=== PATIENT | female | born 1980 | race African-American/Black ===

== ENCOUNTER 2023-06-15 21:33 | Emergency (ER) | payer MEDICARE, MEDICAID ==
[~2023-06-15] VITALS: Ht 165.1 cm; Wt 68.0 kg
[2023-06-15] MEDS ORDERED: FENTANYL CITRATE 100 MCG/2 ML AMPUL IM ONE (22:00)
[2023-06-15] MEDS ORDERED: FENTANYL CITRATE 100 MCG/2 ML AMPUL ONE (22:02)
[2023-06-16 00:21] LABS: BASOPHILS # (AUTO) 0.1 K/UL (0.0-0.2); BASOPHILS % (AUTO) 0.6 % (0.0-2.0); EOSINOPHILS % (AUTO) 0.1 % (0.0-7.0); HEMATOCRIT 37.8 % (31.2-41.9); HEMOGLOBIN 12.3 g/dL (10.9-14.3); LYMPHOCYTES # (AUTO) 2.2 K/uL (0.8-4.8); LYMPHOCYTES % (AUTO) 15.2 % (20.5-51.5); MEAN CORPUSCULAR HEMOGLOBIN 29.8 uug (24.7-32.8); MEAN CORPUSCULAR HGB CONC 33 g/dL (32.3-35.6); MEAN CORPUSCULAR VOLUME 91.9 fL (75.5-95.3); MONOCYTES # (AUTO) 1.7 K/uL (0.1-1.30); MONOCYTES % (AUTO) 11.7 % (0.0-11.0); NEUTROPHILS # (AUTO) 10.4 K/uL (1.8-8.9); NEUTROPHILS % (AUTO) 72.4 % (38.5-71.5); PLATELET COUNT (AUTO) 386 K/uL (179-408); RED BLOOD CELL COUNT(AUTO) 4.11 MIL/uL (3.63-4.92); RED CELL DISTRIBUTION WIDTH 13.5 % (12.3-17.7); WHITE BLOOD COUNT (AUTO) 14.3 K/uL (3.8-11.8)
[2023-06-16 00:25] LABS: DIFFERENTIAL COMMENT 1
[2023-06-16 00:30] LABS: CALCIUM 9.1 mg/dL (8.5-10.1); CARBON DIOXIDE 29 mmol/L (21-32); CHLORIDE 102 mmol/L (98-107); GLUCOSE 114 mg/dL (74-106); SODIUM SERUM 143 mmol/L (136-145); UREA NITROGEN, BLOOD 12 mg/dL (7-18)
[2023-06-16] MEDS ORDERED: HYDROMORPHONE 1 MG/1 ML DISP.SYRIN IM ONE ×2 (00:30→06:15)
[2023-06-16] MEDS ORDERED: diphenhydrAMINE 50 MG/1 ML VIAL IM ONE (00:30)
[2023-06-16] MEDS ORDERED: HYDROMORPHONE 2 MG/1 ML DISP.SYRIN ONE (00:35)
[2023-06-16] MEDS ORDERED: diphenhydrAMINE 50 MG/1 ML VIAL ONE (00:35)
[2023-06-16 00:36] LABS: ALANINE AMINOTRANSFERASE 37 U/L (14-59); ALBUMIN 4.1 g/dL (3.4-5.0); ALKALINE PHOSPHATASE 52 U/L (50-136); ASPARTATE AMINOTRANSFERASE 46 U/L (15-37); BILIRUBIN,DIRECT 0.2 mg/dL (0.0-0.2); BILIRUBIN,TOTAL 0.8 mg/dL (0.2-1.0); LIPASE 36 U/L (16-77); TOTAL PROTEIN, SERUM 8.2 g/dL (6.4-8.2)
[2023-06-16 00:41] LABS: PREGNANCY TEST SERUM QUAN < 1 miul/L (0-6)
[2023-06-16] MEDS ORDERED: HYDROMORPHONE 1 MG/1 ML DISP.SYRIN ONE (06:24)
[2023-06-16 11:21] VITALS: BP 112/81; O2SAT 97
== END 2023-06-16 07:30 | disposition home or self-care (01) ==
LOC: ER 21:33
DX: R11.2 Nausea with vomiting, unspecified (principal); R10.2 Pelvic and perineal pain; F11.29 Opioid dependence with unspecified opioid-induced disorder
CPT/HCPCS: 99284; 96372 ×4; 80076; 80048; 83690; 85025; 84702; J3010; J1200; J1170 ×2; 36415; A4606; A4663